=== PATIENT | male | born 1970 | race Caucasian/White ===

== ENCOUNTER 2021-09-01 19:41 | Emergency (ER) | payer MEDICAID ==
[~2021-09-01] VITALS: Ht 165.1 cm; Wt 90.7 kg
[2021-09-01 20:34] VITALS: BP_SYST 138
--- NOTE | 2021-09-01 20:42 | NUR ---
Patient triaged and placed in waiting room. VSS and patient appears in no acute distress at this time. Accompanied by FAMILY, awaiting available bed, and MD notified of need for MSE.
--- NOTE | 2021-09-01 22:51 | NUR ---
Patient to ER bed 2 to gown for evaluation. Side rails up. Report given to Lisa JONES.
--- NOTE | 2021-09-01 23:00 | NUR ---
patient brought complaining of pain to right 3rd and 4th finger after dropping tire marialuisa on fingers. 3rd finger has has 2.5 in jagged laceration. 4th finger is purple and swollen at the tip. cap refill <3sec. Pain 10/10. No other complaints/injuries per patient or as noted. will continue to monitor.
[2021-09-01] MEDS ORDERED: LIDOCAINE 2%, 20 ML MDV ONE (23:14)
--- NOTE | 2021-09-02 00:20 | NUR ---
CATY Nicholas at bedside examining patient.
[2021-09-02] MEDS ORDERED: AMPICILLIN SODIUM/SULBACTAM NA 3 GM VIAL IM ONE (00:45)
--- NOTE | 2021-09-02 01:32 | NUR ---
Dr. Pompa at bedside for nerve block on patient. Patient tolerated well.
[2021-09-02] MEDS ORDERED: AMPICILLIN SODIUM/SULBACTAM NA 3 GM VIAL ONE (01:41)
--- NOTE | 2021-09-02 02:33 | NUR ---
Dr. Pompa speaking to [facility] for possible transfer.
--- NOTE | 2021-09-02 03:40 | NUR ---
RECEIVED REPORT FROM GIO JONES
--- NOTE | 2021-09-02 04:00 | NUR ---
DR. YOUSSEF AT BEDSIDE SUTURING PT
--- NOTE | 2021-09-02 04:45 | NUR ---
PT WOUNDS DRESSED WITH NON ADHERENT PAD, GAUZE APPLIED, CMS INTACT. PT C/O PAIN. DR. DOMONIQUE RAMESH.
[2021-09-02] MEDS ORDERED: HYDROcodone/ACETAMIN 5-325 MG TAB (NORCO/ VICODIN) PO ONE (05:00)
[2021-09-02] MEDS ORDERED: DIPH-TET-PERTUS Vaccine 0.5 ML VIAL (ADACEL) I.M. ONE (05:45)
--- NOTE | 2021-09-02 07:06 | NUR ---
Patient resting quietly. No acute distress noted. VSS.
[2021-09-02 07:23] VITALS: BP_SYST 150
--- NOTE | 2021-09-02 07:27 | NUR ---
POC for today reviewed, pt. will go to [facility] for continuation of care via private auto, Dr Pardo will be accepting care
--- NOTE | 2021-09-02 07:39 | NUR ---
report to Winnie at [facility]
--- NOTE | 2021-09-02 07:47 | NUR ---
Patient to be transferred to [facility]. Is being transferred due to higher level of care. Receiving facility has accepting physician and available space. ER physician has signed transfer form. Patient or responsible alliance party has agreed to transfer and signed form. Patient belongings inventoried and will be sent with patient. Copy of nursing notes, lab reports, EKG, Physicians Orders and X-rays to be sent with patient. Report called to Winnie at receiving facility. Receiving physician is Char. Pt. left via private auto, accompanied by friend Alexis.
== END 2021-09-02 07:47 | disposition short-term general hospital (02) ==
LOC: SED 19:41
DX: S62.664A Nondisplaced fracture of distal phalanx of right ring finger, initial encounter for closed fracture (principal); S61.214A Laceration without foreign body of right ring finger without damage to nail, initial encounter
CPT/HCPCS: 12002; 73140; 90471; 90715; 96372; 99285; J0295; J2001; 99283